=== PATIENT | female | born 1955 | race African-American/Black ===

== ENCOUNTER 2017-04-03 15:29 | Emergency (ER) | payer OTHER, SELFPAY ==
[2017-04-03] MEDS ORDERED: Ibuprofen 200 MG TAB ONE (16:50)
--- NOTE | 2017-04-03 18:28 | RAD ---
THREE VIEWS LEFT ANKLE 04/03/17 HISTORY: Left ankle pain, swelling for one week. AP, lateral, and oblique views of the left ankle is obtained. No evidence of left ankle fractures, subluxations, or bony lesions seen. IMPRESSION: Normal three views left ankle. POS: [facility]
== END 2017-04-03 18:14 | disposition home or self-care (01) ==
LOC: ERS 15:29
DX: M25.472 Effusion, left ankle (principal); F17.210 Nicotine dependence, cigarettes, uncomplicated
CPT/HCPCS: 99406

== ENCOUNTER 2025-01-19 10:15 | Outpatient (CLI) | payer OTHER | END 2025-01-19 10:16 | disposition home or self-care (01) | LOC: BICCT 10:15 | PROVIDERS: ATTEND Student in an Organized Health Care Education/Training Program | DX: Z12.2 Encounter for screening for malignant neoplasm of respiratory organs (principal); F17.210 Nicotine dependence, cigarettes, uncomplicated; J84.10 Pulmonary fibrosis, unspecified | CPT/HCPCS: 71271 ==

== ENCOUNTER 2025-01-19 10:39 | Outpatient (CLI) | payer OTHER | END 2025-01-19 10:40 | disposition home or self-care (01) | LOC: BICMAMMO 10:39 | PROVIDERS: ATTEND Student in an Organized Health Care Education/Training Program | DX: Z12.31 Encounter for screening mammogram for malignant neoplasm of breast (principal); Z78.0 Asymptomatic menopausal state; Z80.3 Family history of malignant neoplasm of breast; M81.0 Age-related osteoporosis without current pathological fracture | CPT/HCPCS: 77063; 77067; 77080 ==